=== PATIENT | male | born 1990 | race Two or more races ===

== ENCOUNTER 2022-07-05 15:25 | Emergency (ER) | payer MEDICAID ==
[~2022-07-05] VITALS: Ht 170.2 cm; Wt 90.0 kg
[2022-07-05 15:26] VITALS: BP 140/85
== END 2022-07-05 20:56 | disposition left against medical advice (07) ==
LOC: ER 15:25
DX: Z53.21 Procedure and treatment not carried out due to patient leaving prior to being seen by health care provider (principal)

== ENCOUNTER 2024-09-02 04:15 | Emergency (ER) | payer MEDICAID ==
[~2024-09-02] VITALS: Ht 170.2 cm; Wt 90.0 kg
[2024-09-02 04:24] VITALS: O2SAT 98
[2024-09-02 04:26] VITALS: BP 132/81; PULSE 98; RESP 16; TEMP 98; O2SAT 98
== END 2024-09-02 05:15 | disposition left against medical advice (07) ==
LOC: ER 04:15
DX: R51.9 Headache, unspecified (principal); Z53.21 Procedure and treatment not carried out due to patient leaving prior to being seen by health care provider

== ENCOUNTER 2025-09-05 03:56 | Emergency (ER) | payer SELFPAY ==
[~2025-09-05] VITALS: Ht 170.2 cm; Wt 78.0 kg
[2025-09-05 04:02] VITALS: O2SAT 100
[2025-09-05 04:05] VITALS: BP 137/87; PULSE 81; RESP 16; TEMP 36.9; O2SAT 100
== END 2025-09-05 04:55 | disposition left against medical advice (07) ==
LOC: ER 03:56
DX: Z00.00 Encounter for general adult medical examination without abnormal findings (principal); Z53.21 Procedure and treatment not carried out due to patient leaving prior to being seen by health care provider
CPT/HCPCS: 99281